=== PATIENT | female | born 1995 | race Caucasian/White ===

== ENCOUNTER 2017-05-07 19:15 | Emergency (ER) | payer OTHER ==
[2017-05-07 19:41] VITALS: BP 146/80
--- NOTE | 2017-05-07 19:49 | UC ---
Ear Complaint HPI - HPI Summary HPI Summary: complaint of left ear pain and nasal congestion that started today feels lots of pressure tonight sore throat that started 2 days ago throat hurts more on the left side more than right cold sore on her bottom lip denies fever ,cough, started to take OTC medication with relief - History of Current Complaint Chief Complaint: UCEar Stated Complaint: EAR COMPLAINT Time Seen by Provider: 05/07/17 19:43 Hx Obtained From: Patient Hx Last Menstrual Period: 04/19/17 - Allergies/Home Medications Allergies/Adverse Reactions: Allergies Allergy/AdvReac Type Severity Reaction Status Date / Time No Known Allergies Allergy Verified 05/07/17 19:36 Home Medications: Home Medications Phenylephrine-Chlorpheniramine [Diandra-[place] Plus Cold & 5-2-10-325 mg] 1 cap PO Q6H PRN 05/07/17 [History Confirmed 05/07/17] PMH/Surg Hx/FS Hx/Imm Hx Previously Healthy: Yes - Surgical History Surgical History: Yes Surgery Procedure, Year, and Place: right ankle surgery - Family History Known Family History: Negative: Cardiac Disease, Hypertension, Diabetes - Social History Occupation: Employed Full-time Lives: With Family Alcohol Use: Occasionally Substance Use Type: None Smoking Status (MU): Never Smoked Tobacco Review of Systems Constitutional: Negative Skin: Negative Eyes: Negative ENT: Sore Throat, Ear Ache, Nasal Discharge Respiratory: Negative Cardiovascular: Negative Gastrointestinal: Negative Genitourinary: Negative Motor: Negative Neurovascular: Negative Musculoskeletal: Negative Neurological: Negative Psychological: Negative All Other Systems Reviewed And Are Negative: Yes Physical Exam Triage Information Reviewed: Yes Appearance: No Pain Distress, Well-Nourished Vital Signs: Initial Vital Signs Temp 98.3 F 05/07/17 19:37 Pulse 83 05/07/17 19:37 Resp 16 05/07/17 19:37 BP 146/80 05/07/17 19:37 Pulse Ox 100 05/07/17 19:37 Vital Signs Reviewed: Yes Eyes: Positive: Conjunctiva Clear ENT: Positive: Pharyngeal erythema, Nasal congestion, Nasal drainage, TM bulging - left- left ear canal with edema and erythema, Other: - TMs not visible to cerumen in ear canals Dental: Positive: Cervical Lymphadenopathy Respiratory: Positive: Lungs clear, Normal breath sounds, No respiratory distress, No accessory muscle use Cardiovascular: Positive: RRR, No Murmur, Pulses Normal Abdomen Description: Positive: Nontender, Soft Bowel Sounds: Positive: Present Musculoskeletal Exam: Normal Neurological: Positive: Alert Psychological Exam: Normal Skin Exam: Normal Ear Complaint Course/Dx - Differential Dx/Diagnosis Differential Diagnosis/HQI/PQRI: Cerumen Impaction, Otitis Externa, Otitis Media , Pharyngitis, URI Provider Diagnoses: otits media left, otitis externa left, pharyngitis Discharge - Discharge Plan Condition: Stable Disposition: HOME Prescriptions: Amoxicillin CAP* [Amoxicillin 500 MG CAP*] 500 mg PO Q12H #20 cap Patient Education Materials: Pharyngitis (ED), Otitis Media (ED), Otitis Externa (ED) Referrals: Soy Paniagua MD [Primary Care Provider] - Additional Instructions: Please start antibiotic as directed Increase fluids and rest Take acetaminophen or ibuprofen for fever or pain Please review your discharge instructions. If your symptoms do not improve please call your primary care provider or return to urgent care.
[2017-05-07] MEDS ORDERED: Ibuprofen TAB* 400 MG PO ONE (19:51)
[2017-05-07] MEDS ORDERED: Ibuprofen TAB* 400 MG ONE (20:24)
[2017-05-07] MEDS ORDERED: Neomyc/Polym/HC 1% OTIC SUSP* **OTIC LEFT EAR ONE (20:36)
[2017-05-07] MEDS ORDERED: Amoxicillin CAP* 500 MG PO ONE (20:38)
== END 2017-05-07 21:00 | disposition home or self-care (01) ==
LOC: UCCORT 19:15
DX: H60.92 Unspecified otitis externa, left ear (principal); J02.9 Acute pharyngitis, unspecified
CPT/HCPCS: 87651; 99203; A9270-GY; G0463